=== PATIENT | female | born 1965 | race Two or more races ===

== ENCOUNTER → 2018-03-28 | Outpatient (CLI) | payer OTHER ==
--- NOTE | 2018-03-28 14:17 | CARD ---
MR#: [id number] Date of Study: 03/28/2018 Ordering Physician: SHAHRIAR CASTELLANO, Referring Physician: SHAHRIAR CASTELLANO, Tech: Celine Doty CS APPROVED REPORT INDICATION Chest Pain PROCEDURE The patient underwent an Exercise Stress Test using the Abner Protocol. Blood pressure, heart rate, a nd EKG were monitored. An Echocardiogram was performed by human resources technician in four stages in quad fashion. At peak stress four se lected images were obtained and placed side by side with resting images for comparison. STRESS ECHO FINDINGS The resting Echocardiogram showed normal left ventricular systolic contractility with an estimated Ej ection Fraction of about 60 %. The Resting Echocardiogram showed normal augmentation of myocardial wall segments using a 16 segment model. The Stress Echocardiogram showed normal augmentation of myocardial wall segments using a 16 segment m rnee. The Stress Echocardiogram left ventricular systolic contractility has an estimated Ejection Fraction of about 70%. Test Type: Exercise Stress Nurse/Tech: [place] Durbin R.N. Test Indications: bradycardia Resting ECG: SB Resting Heart Rate: 51 bpm Resting Blood Pressure: 95/42mmHg Pretest Chest Pain: No chest pain Nurse/Tech Notes lungs cta, heart tones regular Stress Symptoms No chest pain or symptoms. POST EXERCISE Reason for Termination: Reached target heart rate Target HR: Yes Max HR: 155 bpm 91% of Maximum Predicted HR: 170 bpm Exercise duration: 9:35 min:sec, 4 Stage Exercise capacity: 10.1METs Max Blood Pressure: 132/84mmHg Blood Pressure response to exercise: Normal blood pressure response during stress. Heart Rate response to exercise: normal Chest Pain: No. Arrhythmia: Yes. occasional PVC ST Change: Yes. ST depression in II III avf, V4-6 started in Stage 2, deepened throughout exercise, r esolved during recovery INTERPRETATION Stress EKG Conclusion: Baseline EKG showed sinus rhythm. No ischemic changes at peak stress. No arr hythmias. Preliminary Notification Critical Value: No <Conclusion> Treadmill exercise stress echocardiogram did not show any evidence of ischemia or infarct. Normal left ventricle systolic function with ejection fraction estimated at 60%. Patient had good activity tolerance. Low risk for cardiac events. Signed by : Tyler Marsh, Electronically Approved : 03/28/2018 14:16:57
== END | disposition home or self-care (01) ==
LOC: ECHO 12:54
PROVIDERS: ATTEND Internal Medicine Cardiovascular Disease
DX: R07.9 Chest pain, unspecified (principal)
CPT/HCPCS: 93017; 93350

== ENCOUNTER → 2020-08-17 | Outpatient (CLI) | payer OTHER ==
--- NOTE | 2020-08-17 16:21 | RAD ---
XR KNEE 3 VIEWS_RT DATE: 08/17/2020 3:02 PM INDICATION: Reason: RIGHT KNEE PAIN. / Spl. Instructions: / History: COMPARISON: None. FINDINGS: Bones: There is no evidence of acute fracture or dislocation. Joints: Mild medial compartment degenerative changes. There is no joint effusion. Miscellaneous: None. IMPRESSION: No acute osseous abnormality. Mild medial compartment degenerative changes. Electronically signed by: Jacob Mendez MD (08/17/2020 4:19 PM) [id number]
== END ==
LOC: LAB 14:35
PROVIDERS: ATTEND Family Medicine
DX: M17.11 Unilateral primary osteoarthritis, right knee (principal)
CPT/HCPCS: 73562

== ENCOUNTER → 2021-06-02 | Outpatient (CLI) | payer OTHER ==
--- NOTE | 2021-06-02 12:21 | KCIC ---
EXAM: CT coronary artery calcium screening; radiologist over read. HISTORY: Cigarette smoking. Palpitations.. TECHNIQUE: Computed tomographic images of the chest were obtained without contrast. Multiplanar refor matting was performed. *One or more of the following individualized dose reduction techniques were utilized for this examina tion: 1. Automated exposure control. 2. Adjustment of the mA and/or kV according to patient size. 3. Use of iterative reconstruction technique. COMPARISON: None. FINDINGS: The heart is normal in size. The aorta is normal in caliber. There is no lymphadenopathy. T here is no infiltrate, pleural effusion or pneumothorax. There is no acute finding involving the uppe r abdomen or osseous structures. Coronary artery calcium score: 0. IMPRESSION: 1. Coronary artery calcium score of 0. No identifiable calcified atherosclerotic plaque. 2. No significant central thoracic finding. Electronically signed by: Imani Melchor MD (06/02/2021 12:19 PM) [id number]
== END ==
LOC: KCIC CT 10:41
PROVIDERS: ATTEND Family Medicine
DX: R00.2 Palpitations (principal)
CPT/HCPCS: 75571